=== PATIENT | male | born 1990 | race Caucasian/White ===

== ENCOUNTER 2023-08-14 07:23 | Day surgery (SDC) | payer MEDICAID ==
[2023-08-14] MEDS ORDERED: Sodium Chloride 0.9% 1,000 ML IV SCH (08:30)
[2023-08-14] MEDS ORDERED: Lactated Ringers 1,000 ML IV SCH (08:30)
[2023-08-14] MEDS ORDERED: fentaNYL 100 MCG/2 ML SDV ONE (08:48)
[2023-08-14] MEDS ORDERED: Midazolam 1 MG/ML 2 ML SDV ONE (08:48)
[2023-08-14] MEDS ORDERED: Propofol 200 MG/20 ML SDV ONE (08:48)
== END 2023-08-14 10:48 | disposition home or self-care (01) ==
LOC: JP.SDS 07:23
PROVIDERS: ATTEND Student in an Organized Health Care Education/Training Program
DX: K63.89 Other specified diseases of intestine (principal); K52.9 Noninfective gastroenteritis and colitis, unspecified; K21.9 Gastro-esophageal reflux disease without esophagitis; I12.9 Hypertensive chronic kidney disease with stage 1 through stage 4 chronic kidney disease, or unspecified chronic kidney disease; N18.9 Chronic kidney disease, unspecified; E78.00 Pure hypercholesterolemia, unspecified; Z88.2 Allergy status to sulfonamides
CPT/HCPCS: 45380; 88305; J2250; J2704; J3010; J7030